=== PATIENT | female | born 2000 | race Caucasian/White ===

== ENCOUNTER 2021-05-15 17:43 | Emergency (ER) | payer OTHER ==
[2021-05-15 18:11] VITALS: BP 140/64; PULSE 93; TEMP 98.6; BMI 23.3
[2021-05-15 19:52] LABS: BASO % 1.4 % (0-2.0); EOS % 0.7 % (0-4.5); HEMATOCRIT 40.6 % (32.4-45.2); LYMPH % 29.2 % (8-40); MCH 30.4 pg (25.7-33.7); MCHC 34.4 g/dl (32.0-36.0); MEAN CELL VOLUME 88.5 fl (80-96); MEAN PLT VOLUME 7.7 fl (7.5-11.1); MONO % 7.4 % (3.8-10.2); NEUT % 61.3 % (42.8-82.8); PLATELET COUNT 269 10^3/uL (134-434); RBC 4.58 M/mm3 (3.60-5.2); RDW 12.7 % (11.6-15.6); WHITE BLOOD COUNT 11.8 K/mm3 (4.0-10.0)
[2021-05-15 19:53] LABS: URINE APPEARANCE CLEAR; URINE BILIRUBIN NEGATIVE (NEGATIVE); URINE COLOR YELLOW; URINE GLUCOSE (UA) NEGATIVE (NEGATIVE); URINE KETONE TRACE (NEGATIVE); URINE LEUK ESTERASE NEGATIVE (NEGATIVE); URINE NITRITE NEGATIVE (NEGATIVE); URINE PROTEIN NEGATIVE (NEGATIVE); URINE UROBILINOGEN 0.2 mg/dL (0.2-1.0)
[2021-05-15 19:57] LABS: HCG,QUALITATIVE URINE Negative
[2021-05-15] MEDS ORDERED: ACETAMINOPHEN 1000 MG/100 ML VIAL (NON FORMULARY) IVPB ONE (20:01)
[2021-05-15] MEDS ORDERED: ACETAMINOPHEN INJECTION 100 ML IVPB ONE (20:06)
[2021-05-15 20:12] LABS: ALBUMIN 3.9 g/dl (3.4-5.0); BLOOD UREA NITROGEN 17.9 mg/dL (7-18)
[2021-05-15 20:15] LABS: CREATININE 0.9 mg/dL (0.55-1.3)
[2021-05-15 20:17] LABS: BILIRUBIN,TOTAL 0.3 mg/dL (0.2-1); TOT PROT 7.8 g/dl (6.4-8.2)
== END 2021-05-15 23:06 | disposition home or self-care (01) ==
LOC: JER 17:43
PROC: 3E0333Z Introduction of Anti-inflammatory into Peripheral Vein, Percutaneous Approach (ICD-10-PCS; principal; 2021-05-15)
DX: R10.30 Lower abdominal pain, unspecified (principal)
CPT/HCPCS: 36415; 74177-TC; 80053; 81003; 84703; 85025; 87086; 93005; 93010; 99285-25; C9803; J0131; Q9967; U0003; U0005

== ENCOUNTER 2021-06-04 05:48 | Emergency (ER) | payer MEDICARE, OTHER ==
[2021-06-04] MEDS ORDERED: ACETAMINOPHEN 500 MG TABLET (FP) PO ONE (05:55)
[2021-06-04] MEDS ORDERED: ONDANSETRON 4 MG TABLET PO PRN (05:55)
[2021-06-04 06:00] VITALS: BP 120/72; PULSE 98; TEMP 99.8; BMI 23.4
[2021-06-04] MEDS ORDERED: ACETAMINOPHEN 325 MG TABLET (FP) ONE (06:00)
[2021-06-04] MEDS ORDERED: ONDANSETRON *ODT* 4 MG TABLET ONE (06:00)
[2021-06-04] MEDS ORDERED: KETOROLAC TROMETHAMINE 30 MG/1 ML VIAL IM ONE (06:41)
[2021-06-04] MEDS ORDERED: KETOROLAC TROMETHAMINE 30 MG/1 ML VIAL ONE (06:46)
[2021-06-04 07:00] LABS: HCG,QUALITATIVE URINE Negative
== END 2021-06-04 08:07 | disposition home or self-care (01) ==
LOC: FER 05:48
PROC: 3E0233Z Introduction of Anti-inflammatory into Muscle, Percutaneous Approach (ICD-10-PCS; principal; 2021-06-04)
DX: R05 Cough (principal); J02.9 Acute pharyngitis, unspecified; R50.9 Fever, unspecified; Z11.52 Encounter for screening for COVID-19
CPT/HCPCS: 71045-TC-FY; 81003; 81025; 84703; 87804; 87807; 93005; 96372; 99285-25; C9803; U0003; U0005

== ENCOUNTER 2021-07-24 14:17 | Inpatient (IN) | payer MEDICARE, OTHER ==
[2021-07-24 14:34] VITALS: BMI 33.3
[2021-07-24] MEDS ORDERED: SODIUM CHLORIDE 0.9% 500 ML INFUS.BAG IV ONE (15:59)
[2021-07-24 17:09] LABS: HEMATOCRIT 39.2 % (32.4-45.2); HEMOGLOBIN 13.4 GM/dL (10.7-15.3); MCH 30.4 pg (25.7-33.7); MCHC 34.3 g/dl (32.0-36.0); MEAN CELL VOLUME 88.7 fl (80-96); MEAN PLT VOLUME 7.7 fl (7.5-11.1); PLATELET COUNT 272 10^3/uL (134-434); RBC 4.41 M/mm3 (3.60-5.2); RDW 12.8 % (11.6-15.6)
[2021-07-24 17:31] LABS: ALBUMIN 3.8 g/dl (3.4-5.0); BLOOD UREA NITROGEN 14.3 mg/dL (7-18)
[2021-07-24 17:34] LABS: CREATININE 0.7 mg/dL (0.55-1.3)
[2021-07-24 17:35] LABS: BILIRUBIN,TOTAL 0.3 mg/dL (0.2-1); TOT PROT 7.7 g/dl (6.4-8.2)
[2021-07-24 17:38] LABS: ANISOCYTOSIS 0; MACROCYTOSIS 0; PLATELET ESTIMATE NORMAL
[2021-07-24 18:23] LABS: PH,URINE 5.5 (5.0-8.0); URINE APPEARANCE CLEAR; URINE BILIRUBIN NEGATIVE (NEGATIVE); URINE COLOR YELLOW; URINE GLUCOSE (UA) NEGATIVE (NEGATIVE); URINE KETONE NEGATIVE (NEGATIVE); URINE LEUK ESTERASE NEGATIVE (NEGATIVE); URINE NITRITE NEGATIVE (NEGATIVE); URINE PROTEIN NEGATIVE (NEGATIVE)
[2021-07-24 18:25] LABS: HCG,QUALITATIVE URINE Negative
[2021-07-24] MEDS ORDERED: CEFEPIME HCL/D5W 1 GM/50 ML BAG IVPB ONE (23:14)
[2021-07-24] MEDS ORDERED: morphine CARPU-JECT 4 MG/1 ML DISP.SYRIN IVPUSH ONE (23:18)
[2021-07-24] MEDS ORDERED: CEFEPIME 1 GM/100 ML BAG IVPB ONE (23:23)
[2021-07-24] MEDS ORDERED: morphine SULFATE 4 MG/ML VIAL ONE (23:24)
[2021-07-25] MEDS: LACTATED RINGERS SOLUTION 1,000 ML IV SCH (03:35)
[2021-07-25] MEDS ORDERED: morphine SULFATE 4 MG/ML VIAL IVPUSH ONE (06:30)
[2021-07-25] MEDS ORDERED: morphine CARPU-JECT 2 MG/1 ML DISP.SYRIN IVPUSH ONE (06:30)
[2021-07-25] MEDS ORDERED: morphine SULFATE 4 MG/ML VIAL ONE (06:37)
[2021-07-25 07:18] LABS: BASO % 0.5 % (0-2.0); EOS % 0.3 % (0-4.5); HEMATOCRIT 36.2 % (32.4-45.2); HEMOGLOBIN 12.4 GM/dL (10.7-15.3); LYMPH % 13.5 % (8-40); MCH 30.2 pg (25.7-33.7); MCHC 34.2 g/dl (32.0-36.0); MEAN CELL VOLUME 88.5 fl (80-96); MEAN PLT VOLUME 7.8 fl (7.5-11.1); MONO % 6.4 % (3.8-10.2); NEUT % 79.3 % (42.8-82.8); PLATELET COUNT 241 10^3/uL (134-434); RBC 4.09 M/mm3 (3.60-5.2); RDW 12.4 % (11.6-15.6); WHITE BLOOD COUNT 15.1 K/mm3 (4.0-10.0)
[2021-07-25 07:37] LABS: CALCIUM 8.8 mg/dL (8.5-10.1)
[2021-07-25 07:38] LABS: ALBUMIN 3.3 g/dl (3.4-5.0); BLOOD UREA NITROGEN 11.9 mg/dL (7-18)
[2021-07-25 07:42] LABS: BILIRUBIN,TOTAL 0.5 mg/dL (0.2-1); CREATININE 0.6 mg/dL (0.55-1.3); MAGNESIUM 2.1 mg/dL (1.8-2.4); PHOSPHOROUS 4.1 mg/dL (2.5-4.9)
[2021-07-25 07:43] LABS: TOT PROT 6.8 g/dl (6.4-8.2)
[2021-07-25] MEDS: PANTOPRAZOLE 40 MG TABLET PO SCH (09:22)
[2021-07-25] MEDS ORDERED: DEXTROSE 5%-WATER - 50 ML IVPB ONE ×2 (12:44→16:38)
[2021-07-25] MEDS ORDERED: PIPERACILLIN/TAZOBACTAM 3.375 GM VIAL IVPB ONE ×2 (12:44→16:38)
[2021-07-25] MEDS: PIPERACILLIN/TAZOB 3.375 GM 3.375 GM in DEXTROSE 5%-WATER - 50 ML IVPB SCH ×2 (12:54→17:04)
[2021-07-25] MEDS ORDERED: morphine SULFATE 4 MG/ML VIAL IVPUSH PRN (15:30)
[2021-07-25] MEDS ORDERED: ACETAMINOPHEN 1000 MG/100 ML VIAL IVPB PRN (18:24)
[2021-07-25] MEDS ORDERED: ONDANSETRON 4 MG/2 ML VIAL IVPUSH ONE (20:12)
[2021-07-25] MEDS: KETOROLAC TROMETHAMINE 30 MG/1 ML VIAL IVPUSH PRN (20:55)
[2021-07-25] MEDS: QUEtiapine FUMARATE 100 MG TABLET (FP) PO SCH (21:00)
[2021-07-25] MEDS: MELATONIN 5 MG TABLETS PO SCH (21:01)
[2021-07-25] MEDS ORDERED: PATIENT'S OWN MEDICATION (NON-FORMULARY) (Melatonin [Melatonin] 10 MG Capsule) PO SCH (22:00)
[2021-07-25] MEDS ORDERED: DIVALPROEX SODIUM 125 MG TABLET E.C. PO SCH (22:00)
[2021-07-26] MEDS ORDERED: PIPERACILLIN/TAZOBACTAM 3.375 GM VIAL IVPB ONE ×3 (01:15→17:50)
[2021-07-26] MEDS ORDERED: DEXTROSE 5%-WATER - 50 ML IVPB ONE ×3 (01:15→17:50)
[2021-07-26] MEDS: PIPERACILLIN/TAZOB 3.375 GM 3.375 GM in DEXTROSE 5%-WATER - 50 ML IVPB SCH ×3 (02:14→18:39)
[2021-07-26] MEDS: LACTATED RINGERS SOLUTION 1,000 ML IV SCH ×2 (02:56→16:16)
[2021-07-26] MEDS: KETOROLAC TROMETHAMINE 30 MG/1 ML VIAL IVPUSH PRN ×2 (07:16→23:39)
[2021-07-26 08:48] LABS: BASO % 0.6 % (0-2.0); HEMATOCRIT 36.4 % (32.4-45.2); HEMOGLOBIN 12.7 GM/dL (10.7-15.3); MCH 30.2 pg (25.7-33.7); MEAN CELL VOLUME 86.2 fl (80-96); MEAN PLT VOLUME 7.6 fl (7.5-11.1); MONO % 7.1 % (3.8-10.2); NEUT % 75.3 % (42.8-82.8); PLATELET COUNT 215 10^3/uL (134-434); RBC 4.22 M/mm3 (3.60-5.2); RDW 12.2 % (11.6-15.6); WHITE BLOOD COUNT 11.6 K/mm3 (4.0-10.0)
[2021-07-26 09:00] LABS: ALBUMIN 3.1 g/dl (3.4-5.0)
[2021-07-26 09:01] LABS: BLOOD UREA NITROGEN 12.1 mg/dL (7-18); CALCIUM 8.9 mg/dL (8.5-10.1)
[2021-07-26 09:03] LABS: CREATININE 0.7 mg/dL (0.55-1.3); PHOSPHOROUS 4.9 mg/dL (2.5-4.9)
[2021-07-26 09:05] LABS: BILIRUBIN,TOTAL 0.9 mg/dL (0.2-1); TOT PROT 6.6 g/dl (6.4-8.2)
[2021-07-26 09:10] LABS: MAGNESIUM 2.2 mg/dL (1.8-2.4)
[2021-07-26] MEDS ORDERED: QUEtiapine FUMARATE 100 MG TABLET (FP) PO SCH (10:00)
[2021-07-26] MEDS: QUEtiapine FUMARATE 100 MG TABLET (FP) PO SCH ×2 (10:03→21:01)
[2021-07-26] MEDS: PANTOPRAZOLE 40 MG TABLET PO SCH (10:03)
[2021-07-26] MEDS: DIVALPROEX SODIUM 125 MG TABLET E.C. PO SCH (10:03)
[2021-07-26] MEDS ORDERED: INSULIN (NOVOLOG) ASPART 100 UNITS/ML 10ML VIAL ONE (11:08)
[2021-07-26] MEDS ORDERED: LIDOCAINE HCL 1%, 10 MG/ML (20ML VIAL) ONE (13:04)
[2021-07-26] MEDS ORDERED: MIDAZOLAM HCL 2 MG/2 ML SINGLE DOSE VIAL ONE (13:43)
[2021-07-26] MEDS ORDERED: GLYCOPYRROLATE 0.2 MG/1 ML VIAL ONE (14:00)
[2021-07-26] MEDS ORDERED: CLINDAMYCIN PHOSPHATE 600 MG/4 ML VIAL ONE (14:16)
[2021-07-26] MEDS ORDERED: PROMETHAZINE HCL 25 MG/1 ML VIAL IVPUSH PRN (14:33)
[2021-07-26] MEDS ORDERED: ACETAMINOPHEN 1000 MG/100 ML VIAL IVPB ONE (14:37)
[2021-07-26] MEDS ORDERED: ACETAMINOPHEN INJECTION 100 ML IVPB ONE (15:09)
[2021-07-26] MEDS: MELATONIN 5 MG TABLETS PO SCH (21:01)
[2021-07-27] MEDS ORDERED: ONDANSETRON 4 MG/2 ML VIAL IVPUSH ONE (00:30)
[2021-07-27] MEDS ORDERED: PIPERACILLIN/TAZOBACTAM 3.375 GM VIAL IVPB ONE ×3 (02:11→17:30)
[2021-07-27] MEDS ORDERED: DEXTROSE 5%-WATER - 50 ML IVPB ONE ×3 (02:11→17:30)
[2021-07-27] MEDS: PIPERACILLIN/TAZOB 3.375 GM 3.375 GM in DEXTROSE 5%-WATER - 50 ML IVPB SCH ×3 (02:40→17:46)
[2021-07-27] MEDS: LACTATED RINGERS SOLUTION 1,000 ML IV SCH ×2 (08:01→15:51)
[2021-07-27] MEDS: morphine SULFATE 4 MG/ML VIAL IVPUSH ONE ×2 (09:02→09:15)
[2021-07-27 09:31] LABS: BASO % 0.3 % (0-2.0); EOS % 0.1 % (0-4.5); HEMATOCRIT 36.4 % (32.4-45.2); HEMOGLOBIN 12.3 GM/dL (10.7-15.3); LYMPH % 12.3 % (8-40); MCHC 33.9 g/dl (32.0-36.0); MEAN CELL VOLUME 88.5 fl (80-96); MEAN PLT VOLUME 8.1 fl (7.5-11.1); MONO % 3.9 % (3.8-10.2); NEUT % 83.4 % (42.8-82.8); PLATELET COUNT 268 10^3/uL (134-434); RBC 4.11 M/mm3 (3.60-5.2); RDW 12.6 % (11.6-15.6)
[2021-07-27 09:56] LABS: CALCIUM 9.4 mg/dL (8.5-10.1)
[2021-07-27 09:57] LABS: BLOOD UREA NITROGEN 16.3 mg/dL (7-18)
[2021-07-27 10:00] LABS: CREATININE 0.8 mg/dL (0.55-1.3)
[2021-07-27] MEDS ORDERED: PT OWN MED DRAWER 7, Y5N ONE (10:37)
[2021-07-27] MEDS: DIVALPROEX SODIUM 125 MG TABLET E.C. PO SCH (10:45)
[2021-07-27] MEDS: QUEtiapine FUMARATE 100 MG TABLET (FP) PO SCH ×2 (10:46→21:14)
[2021-07-27] MEDS: PANTOPRAZOLE 40 MG TABLET PO SCH (10:46)
[2021-07-27] MEDS ORDERED: LACTULOSE 20 GM/30 ML UDC (FOR ORAL USE ONLY) PO ONE (15:27)
[2021-07-27] MEDS ORDERED: ACETAMINOPHEN 1000 MG/100 ML VIAL IVPB ONE (19:43)
[2021-07-27] MEDS: POLYETHYLENE GLYCOL (HEALTHYLAX) 3350 17 GM PACKET PO SCH (19:58)
[2021-07-27] MEDS: MELATONIN 5 MG TABLETS PO SCH (21:14)
[2021-07-27] MEDS ORDERED: FAMOTIDINE 20 MG TABLET PO ONE (21:40)
[2021-07-27] MEDS ORDERED: SENNOSIDES/DOCUSATE COMBO (SENNA PLUS) TABLET (UD) PO SCH (22:00)
[2021-07-28] MEDS ORDERED: PIPERACILLIN/TAZOBACTAM 3.375 GM VIAL IVPB ONE ×3 (01:31→18:21)
[2021-07-28] MEDS ORDERED: DEXTROSE 5%-WATER - 50 ML IVPB ONE ×3 (01:31→18:21)
[2021-07-28] MEDS: PIPERACILLIN/TAZOB 3.375 GM 3.375 GM in DEXTROSE 5%-WATER - 50 ML IVPB SCH ×3 (01:44→18:53)
[2021-07-28 09:06] LABS: BASO % 0.7 % (0-2.0); HEMATOCRIT 36.5 % (32.4-45.2); HEMOGLOBIN 12.4 GM/dL (10.7-15.3); LYMPH % 43.7 % (8-40); MCH 30.4 pg (25.7-33.7); MEAN CELL VOLUME 89.6 fl (80-96); MEAN PLT VOLUME 7.9 fl (7.5-11.1); MONO % 6.4 % (3.8-10.2); NEUT % 48.2 % (42.8-82.8); PLATELET COUNT 265 10^3/uL (134-434); RBC 4.08 M/mm3 (3.60-5.2); RDW 12.8 % (11.6-15.6); WHITE BLOOD COUNT 9.5 K/mm3 (4.0-10.0)
[2021-07-28 09:31] LABS: ALBUMIN 3.2 g/dl (3.4-5.0); BLOOD UREA NITROGEN 15.4 mg/dL (7-18); CALCIUM 9.3 mg/dL (8.5-10.1)
[2021-07-28 09:32] LABS: MAGNESIUM 2.2 mg/dL (1.8-2.4)
[2021-07-28 09:34] LABS: CREATININE 0.8 mg/dL (0.55-1.3); PHOSPHOROUS 4.2 mg/dL (2.5-4.9)
[2021-07-28 09:36] LABS: BILIRUBIN,TOTAL 0.3 mg/dL (0.2-1)
[2021-07-28] MEDS ORDERED: PT OWN MED DRAWER 7, Y5N ONE (10:51)
[2021-07-28] MEDS: PANTOPRAZOLE 40 MG TABLET PO SCH (10:56)
[2021-07-28] MEDS: ENOXAPARIN NA (PORCINE) 40 MG/0.4 ML DISP.SYRIN SQ SCH (10:56)
[2021-07-28] MEDS: POLYETHYLENE GLYCOL (HEALTHYLAX) 3350 17 GM PACKET PO SCH ×2 (10:56→21:11)
[2021-07-28] MEDS: DIVALPROEX SODIUM 125 MG TABLET E.C. PO SCH (10:56)
[2021-07-28] MEDS: QUEtiapine FUMARATE 100 MG TABLET (FP) PO SCH ×2 (10:56→21:10)
[2021-07-28 11:53] LABS: HIV INTERPRETATION NEGATIVE (NEGATIVE)
[2021-07-28] MEDS ORDERED: LACTULOSE 20 GM/30 ML UDC (FOR ORAL USE ONLY) PO ONE (17:02)
[2021-07-28] MEDS ORDERED: ACETAMINOPHEN 325 MG TABLET (FP) PO ONE (19:32)
[2021-07-28] MEDS ORDERED: ACETAMINOPHEN 1000 MG/100 ML VIAL IVPB ONE (19:33)
[2021-07-28] MEDS: MELATONIN 5 MG TABLETS PO SCH (21:10)
[2021-07-28] MEDS: SENNOSIDES/DOCUSATE COMBO (SENNA PLUS) TABLET (UD) PO SCH (21:10)
[2021-07-29] MEDS ORDERED: PIPERACILLIN/TAZOBACTAM 3.375 GM VIAL IVPB ONE ×2 (01:48→08:43)
[2021-07-29] MEDS ORDERED: DEXTROSE 5%-WATER - 50 ML IVPB ONE ×2 (01:49→08:44)
[2021-07-29] MEDS: PIPERACILLIN/TAZOB 3.375 GM 3.375 GM in DEXTROSE 5%-WATER - 50 ML IVPB SCH ×2 (01:58→09:55)
[2021-07-29] MEDS: metroNIDAZOLE 250 MG TABLET PO SCH ×3 (06:40→22:25)
[2021-07-29] MEDS: POLYETHYLENE GLYCOL (HEALTHYLAX) 3350 17 GM PACKET PO SCH ×2 (06:41→13:49)
[2021-07-29] MEDS ORDERED: PT OWN MED DRAWER 7, Y5N ONE ×2 (08:43→21:24)
[2021-07-29 09:14] LABS: BASO % 0.9 % (0-2.0); EOS % 1.7 % (0-4.5); HEMATOCRIT 35.9 % (32.4-45.2); HEMOGLOBIN 12.4 GM/dL (10.7-15.3); LYMPH % 38.4 % (8-40); MCH 30.5 pg (25.7-33.7); MCHC 34.5 g/dl (32.0-36.0); MEAN CELL VOLUME 88.4 fl (80-96); MEAN PLT VOLUME 7.7 fl (7.5-11.1); MONO % 7.5 % (3.8-10.2); NEUT % 51.5 % (42.8-82.8); PLATELET COUNT 275 10^3/uL (134-434); RBC 4.06 M/mm3 (3.60-5.2); RDW 12.5 % (11.6-15.6); WHITE BLOOD COUNT 7.9 K/mm3 (4.0-10.0)
[2021-07-29 09:45] LABS: ALBUMIN 3.2 g/dl (3.4-5.0); BLOOD UREA NITROGEN 16.1 mg/dL (7-18); CALCIUM 8.9 mg/dL (8.5-10.1)
[2021-07-29 09:48] LABS: CREATININE 0.7 mg/dL (0.55-1.3)
[2021-07-29 09:50] LABS: BILIRUBIN,TOTAL 0.2 mg/dL (0.2-1); TOT PROT 6.8 g/dl (6.4-8.2)
[2021-07-29] MEDS: QUEtiapine FUMARATE 100 MG TABLET (FP) PO SCH ×2 (09:55→22:25)
[2021-07-29] MEDS: SENNOSIDES/DOCUSATE COMBO (SENNA PLUS) TABLET (UD) PO SCH ×2 (09:55→22:25)
[2021-07-29] MEDS: PANTOPRAZOLE 40 MG TABLET PO SCH (09:55)
[2021-07-29] MEDS: DIVALPROEX SODIUM 125 MG TABLET E.C. PO SCH (09:55)
[2021-07-29] MEDS: ENOXAPARIN NA (PORCINE) 40 MG/0.4 ML DISP.SYRIN SQ SCH (09:58)
[2021-07-29] MEDS ORDERED: CEFUROXIME AXETIL 500 MG TABLET PO SCH (10:00)
[2021-07-29] MEDS ORDERED: LACTULOSE 20 GM/30 ML UDC (FOR ORAL USE ONLY) PO ONE (12:52)
[2021-07-29] MEDS ORDERED: MINERAL OIL ENEMA 133 ML ENEMA RC ONE (13:15)
[2021-07-29] MEDS ORDERED: MAGNESIUM CITRATE 300 ML BOTTLE PO ONE (15:15)
[2021-07-29] MEDS ORDERED: BISACODYL 5 MG TABLET.DR (FP) PO ONE ×2 (15:16→18:00)
[2021-07-29] MEDS ORDERED: PEG 3350/NA SULF BICARB CL/KCL 4000 ML SOLN.RECON PO ONE (19:15)
[2021-07-29] MEDS: LIDOCAINE HCL 5% TOP OINTMENT 50 GM TUBE TP SCH (20:20)
[2021-07-29] MEDS: MELATONIN 5 MG TABLETS PO SCH (22:25)
[2021-07-29] MEDS: CEFUROXIME AXETIL 500 MG TABLET PO SCH (22:25)
[2021-07-29] MEDS: PSYLLIUM 5.85 GM PACKET PO SCH (22:26)
[2021-07-30] MEDS: LIDOCAINE HCL 5% TOP OINTMENT 50 GM TUBE TP SCH ×4 (02:06→18:18)
[2021-07-30] MEDS: metroNIDAZOLE 250 MG TABLET PO SCH ×3 (05:14→22:25)
[2021-07-30] MEDS: SENNOSIDES/DOCUSATE COMBO (SENNA PLUS) TABLET (UD) PO SCH ×2 (10:48→22:25)
[2021-07-30] MEDS: QUEtiapine FUMARATE 100 MG TABLET (FP) PO SCH ×2 (10:49→22:26)
[2021-07-30] MEDS: ENOXAPARIN NA (PORCINE) 40 MG/0.4 ML DISP.SYRIN SQ SCH (10:49)
[2021-07-30] MEDS: CEFUROXIME AXETIL 500 MG TABLET PO SCH ×2 (10:49→22:25)
[2021-07-30] MEDS: PANTOPRAZOLE 40 MG TABLET PO SCH (10:49)
[2021-07-30] MEDS: DIVALPROEX SODIUM 125 MG TABLET E.C. PO SCH (10:50)
[2021-07-30] MEDS: PSYLLIUM 5.85 GM PACKET PO SCH ×2 (10:50→22:29)
[2021-07-30] MEDS: POLYETHYLENE GLYCOL (HEALTHYLAX) 3350 17 GM PACKET PO SCH ×2 (13:24→22:26)
[2021-07-30] MEDS ORDERED: PT OWN MED DRAWER 7, Y5N ONE (20:34)
[2021-07-30] MEDS: MELATONIN 5 MG TABLETS PO SCH (22:25)
[2021-07-31] MEDS: LIDOCAINE HCL 5% TOP OINTMENT 50 GM TUBE TP SCH ×4 (00:13→18:28)
[2021-07-31] MEDS ORDERED: PT OWN MED DRAWER 7, Y5N ONE (00:30)
[2021-07-31] MEDS: metroNIDAZOLE 250 MG TABLET PO SCH ×3 (05:18→21:04)
[2021-07-31] MEDS: POLYETHYLENE GLYCOL (HEALTHYLAX) 3350 17 GM PACKET PO SCH ×3 (05:18→21:05)
[2021-07-31] MEDS: CEFUROXIME AXETIL 500 MG TABLET PO SCH ×2 (09:58→21:05)
[2021-07-31] MEDS: SENNOSIDES/DOCUSATE COMBO (SENNA PLUS) TABLET (UD) PO SCH ×2 (09:58→21:04)
[2021-07-31 09:59] LABS: BASO % 0.6 % (0-2.0); EOS % 0.9 % (0-4.5); HEMATOCRIT 40.3 % (32.4-45.2); HEMOGLOBIN 13.7 GM/dL (10.7-15.3); LYMPH % 23.9 % (8-40); MCH 30.2 pg (25.7-33.7); MEAN CELL VOLUME 88.8 fl (80-96); MEAN PLT VOLUME 7.6 fl (7.5-11.1); MONO % 6.7 % (3.8-10.2); NEUT % 67.9 % (42.8-82.8); PLATELET COUNT 294 10^3/uL (134-434); RBC 4.53 M/mm3 (3.60-5.2); RDW 12.6 % (11.6-15.6); WHITE BLOOD COUNT 9.5 K/mm3 (4.0-10.0)
[2021-07-31] MEDS: QUEtiapine FUMARATE 100 MG TABLET (FP) PO SCH ×2 (09:59→21:04)
[2021-07-31] MEDS: PANTOPRAZOLE 40 MG TABLET PO SCH (09:59)
[2021-07-31] MEDS: PSYLLIUM 5.85 GM PACKET PO SCH ×2 (10:00→21:05)
[2021-07-31] MEDS: DIVALPROEX SODIUM 125 MG TABLET E.C. PO SCH (10:00)
[2021-07-31] MEDS: ENOXAPARIN NA (PORCINE) 40 MG/0.4 ML DISP.SYRIN SQ SCH (10:00)
[2021-07-31 10:18] LABS: ALBUMIN 3.6 g/dl (3.4-5.0)
[2021-07-31 10:19] LABS: BLOOD UREA NITROGEN 14.7 mg/dL (7-18); CALCIUM 9.4 mg/dL (8.5-10.1); MAGNESIUM 2.4 mg/dL (1.8-2.4)
[2021-07-31 10:21] LABS: CREATININE 0.8 mg/dL (0.55-1.3)
[2021-07-31 10:22] LABS: PHOSPHOROUS 3.8 mg/dL (2.5-4.9)
[2021-07-31 10:23] LABS: BILIRUBIN,TOTAL 0.7 mg/dL (0.2-1); TOT PROT 7.4 g/dl (6.4-8.2)
[2021-07-31] MEDS: MAGNESIUM HYDROX 2400MG/30ML ORAL SUSPENSION 30 ML CUP PO ONE ×2 (15:00→16:12)
[2021-07-31] MEDS: BISACODYL 5 MG TABLET.DR (FP) PO SCH (17:26)
[2021-07-31] MEDS: MELATONIN 5 MG TABLETS PO SCH (21:04)
[2021-08-01] MEDS: LIDOCAINE HCL 5% TOP OINTMENT 50 GM TUBE TP SCH ×4 (01:50→18:20)
[2021-08-01] MEDS: metroNIDAZOLE 250 MG TABLET PO SCH ×3 (06:34→21:07)
[2021-08-01] MEDS: POLYETHYLENE GLYCOL (HEALTHYLAX) 3350 17 GM PACKET PO SCH ×3 (06:34→21:07)
[2021-08-01 08:58] LABS: BASO % 0.7 % (0-2.0); EOS % 1.4 % (0-4.5); HEMATOCRIT 38.3 % (32.4-45.2); HEMOGLOBIN 13.5 GM/dL (10.7-15.3); LYMPH % 29.8 % (8-40); MCH 30.8 pg (25.7-33.7); MCHC 35.1 g/dl (32.0-36.0); MEAN CELL VOLUME 87.6 fl (80-96); MEAN PLT VOLUME 7.5 fl (7.5-11.1); MONO % 8.2 % (3.8-10.2); NEUT % 59.9 % (42.8-82.8); PLATELET COUNT 258 10^3/uL (134-434); RBC 4.37 M/mm3 (3.60-5.2); RDW 12.6 % (11.6-15.6); WHITE BLOOD COUNT 9.3 K/mm3 (4.0-10.0)
[2021-08-01 09:20] LABS: BLOOD UREA NITROGEN 14.6 mg/dL (7-18); CALCIUM 9.4 mg/dL (8.5-10.1)
[2021-08-01 09:24] LABS: CREATININE 0.7 mg/dL (0.55-1.3)
[2021-08-01] MEDS: CEFUROXIME AXETIL 500 MG TABLET PO SCH ×2 (10:02→21:07)
[2021-08-01] MEDS: ENOXAPARIN NA (PORCINE) 40 MG/0.4 ML DISP.SYRIN SQ SCH (10:03)
[2021-08-01] MEDS: DIVALPROEX SODIUM 125 MG TABLET E.C. PO SCH (10:03)
[2021-08-01] MEDS: SENNOSIDES/DOCUSATE COMBO (SENNA PLUS) TABLET (UD) PO SCH ×2 (10:04→21:06)
[2021-08-01] MEDS: PSYLLIUM 5.85 GM PACKET PO SCH ×2 (10:04→21:07)
[2021-08-01] MEDS: BISACODYL 5 MG TABLET.DR (FP) PO SCH (10:05)
[2021-08-01] MEDS: QUEtiapine FUMARATE 100 MG TABLET (FP) PO SCH ×2 (10:05→21:07)
[2021-08-01] MEDS: PANTOPRAZOLE 40 MG TABLET PO SCH (10:05)
[2021-08-01] MEDS ORDERED: ONDANSETRON 4 MG/2 ML VIAL IVPUSH ONE (14:42)
[2021-08-01] MEDS ORDERED: PT OWN MED DRAWER 7, Y5N ONE (20:46)
[2021-08-01] MEDS: MELATONIN 5 MG TABLETS PO SCH (21:06)
[2021-08-02] MEDS: LIDOCAINE HCL 5% TOP OINTMENT 50 GM TUBE TP SCH ×4 (00:07→18:06)
[2021-08-02] MEDS: metroNIDAZOLE 250 MG TABLET PO SCH ×3 (05:14→21:16)
[2021-08-02] MEDS: POLYETHYLENE GLYCOL (HEALTHYLAX) 3350 17 GM PACKET PO SCH ×4 (05:14→21:17)
[2021-08-02 09:48] LABS: BASO % 0.6 % (0-2.0); HEMATOCRIT 41.2 % (32.4-45.2); HEMOGLOBIN 13.9 GM/dL (10.7-15.3); LYMPH % 30.3 % (8-40); MCH 30.1 pg (25.7-33.7); MCHC 33.8 g/dl (32.0-36.0); MEAN CELL VOLUME 88.9 fl (80-96); MEAN PLT VOLUME 8.1 fl (7.5-11.1); MONO % 5.4 % (3.8-10.2); NEUT % 62.7 % (42.8-82.8); PLATELET COUNT 284 10^3/uL (134-434); RBC 4.63 M/mm3 (3.60-5.2); RDW 12.6 % (11.6-15.6)
[2021-08-02 10:14] LABS: BLOOD UREA NITROGEN 20.6 mg/dL (7-18); CALCIUM 9.5 mg/dL (8.5-10.1); MAGNESIUM 2.4 mg/dL (1.8-2.4)
[2021-08-02 10:15] LABS: ALBUMIN 3.5 g/dl (3.4-5.0)
[2021-08-02 10:17] LABS: CREATININE 0.7 mg/dL (0.55-1.3); PHOSPHOROUS 3.7 mg/dL (2.5-4.9)
[2021-08-02 10:19] LABS: BILIRUBIN,TOTAL 0.4 mg/dL (0.2-1); TOT PROT 7.4 g/dl (6.4-8.2)
[2021-08-02] MEDS ORDERED: PT OWN MED DRAWER 7, Y5N ONE (10:22)
[2021-08-02] MEDS: CEFUROXIME AXETIL 500 MG TABLET PO SCH ×2 (10:23→21:17)
[2021-08-02] MEDS: DIVALPROEX SODIUM 125 MG TABLET E.C. PO SCH (10:24)
[2021-08-02] MEDS: PSYLLIUM 5.85 GM PACKET PO SCH ×3 (10:24→21:17)
[2021-08-02] MEDS: ENOXAPARIN NA (PORCINE) 40 MG/0.4 ML DISP.SYRIN SQ SCH (10:24)
[2021-08-02] MEDS: BISACODYL 5 MG TABLET.DR (FP) PO SCH (10:24)
[2021-08-02] MEDS: PANTOPRAZOLE 40 MG TABLET PO SCH (10:24)
[2021-08-02] MEDS: QUEtiapine FUMARATE 100 MG TABLET (FP) PO SCH ×2 (10:24→21:16)
[2021-08-02] MEDS: SENNOSIDES/DOCUSATE COMBO (SENNA PLUS) TABLET (UD) PO SCH ×2 (10:24→21:16)
[2021-08-02] MEDS: MELATONIN 5 MG TABLETS PO SCH (21:16)
[2021-08-03] MEDS: LIDOCAINE HCL 5% TOP OINTMENT 50 GM TUBE TP SCH ×3 (02:15→13:16)
[2021-08-03] MEDS: metroNIDAZOLE 250 MG TABLET PO SCH ×3 (06:18→21:17)
[2021-08-03] MEDS: POLYETHYLENE GLYCOL (HEALTHYLAX) 3350 17 GM PACKET PO SCH ×3 (06:18→21:18)
[2021-08-03] MEDS ORDERED: PT OWN MED DRAWER 7, Y5N ONE ×2 (09:28→21:15)
[2021-08-03] MEDS: ENOXAPARIN NA (PORCINE) 40 MG/0.4 ML DISP.SYRIN SQ SCH (09:29)
[2021-08-03] MEDS: QUEtiapine FUMARATE 100 MG TABLET (FP) PO SCH ×2 (09:29→21:17)
[2021-08-03] MEDS: PANTOPRAZOLE 40 MG TABLET PO SCH (09:29)
[2021-08-03] MEDS: BISACODYL 5 MG TABLET.DR (FP) PO SCH (09:29)
[2021-08-03] MEDS: SENNOSIDES/DOCUSATE COMBO (SENNA PLUS) TABLET (UD) PO SCH ×2 (09:29→21:17)
[2021-08-03] MEDS: CEFUROXIME AXETIL 500 MG TABLET PO SCH ×2 (09:30→21:18)
[2021-08-03] MEDS: PSYLLIUM 5.85 GM PACKET PO SCH ×2 (09:30→21:18)
[2021-08-03] MEDS: DIVALPROEX SODIUM 125 MG TABLET E.C. PO SCH (09:30)
[2021-08-03] MEDS ORDERED: MINERAL OIL ENEMA 133 ML ENEMA PR ONE (14:59)
[2021-08-03] MEDS: LACTOBACILLUS ACIDOPHILUS 1 TABLET PO SCH (15:29)
[2021-08-03 17:22] LABS: ALBUMIN 3.8 g/dl (3.4-5.0)
[2021-08-03 17:24] LABS: BILIRUBIN,DIRECT 0.1 mg/dL (0.0-0.2)
[2021-08-03 17:26] LABS: BILIRUBIN,TOTAL 0.2 mg/dL (0.2-1); TOT PROT 7.8 g/dl (6.4-8.2)
[2021-08-03] MEDS: MELATONIN 5 MG TABLETS PO SCH (21:17)
[2021-08-03 23:53] LABS: EPI CELLS >36 /uL (0-25.1); HYALINE CASTS 4 /uL (0-3.1); PH,URINE 5.5 (5.0-8.0); URINE APPEARANCE CLEAR; URINE BILIRUBIN 1+ (NEGATIVE); URINE COLOR DK YELLOW; URINE GLUCOSE (UA) NEGATIVE (NEGATIVE); URINE KETONE TRACE (NEGATIVE); URINE LEUK ESTERASE 1+ (NEGATIVE); URINE NITRITE POSITIVE (NEGATIVE); URINE PROTEIN TRACE (NEGATIVE); URINE RBC 18 /uL (0-23.9); URINE UROBILINOGEN 0.2 mg/dL (0.2-1.0); URINE WBC 14 /uL (0-25.8)
[2021-08-04] MEDS: POLYETHYLENE GLYCOL (HEALTHYLAX) 3350 17 GM PACKET PO SCH ×3 (05:34→22:24)
[2021-08-04] MEDS: metroNIDAZOLE 250 MG TABLET PO SCH ×3 (05:34→22:22)
[2021-08-04 09:26] LABS: ALBUMIN 3.3 g/dl (3.4-5.0); BILIRUBIN,TOTAL 0.4 mg/dL (0.2-1); BLOOD UREA NITROGEN 19.2 mg/dL (7-18); TOT PROT 6.8 g/dl (6.4-8.2)
[2021-08-04 09:28] LABS: CALCIUM 9.1 mg/dL (8.5-10.1)
[2021-08-04 09:29] LABS: CREATININE 0.7 mg/dL (0.55-1.3); PHOSPHOROUS 3.8 mg/dL (2.5-4.9)
[2021-08-04] MEDS: LACTOBACILLUS ACIDOPHILUS 1 TABLET PO SCH (10:05)
[2021-08-04] MEDS: ENOXAPARIN NA (PORCINE) 40 MG/0.4 ML DISP.SYRIN SQ SCH (10:05)
[2021-08-04] MEDS: CEFUROXIME AXETIL 500 MG TABLET PO SCH ×2 (10:05→22:24)
[2021-08-04] MEDS: QUEtiapine FUMARATE 100 MG TABLET (FP) PO SCH ×2 (10:05→22:23)
[2021-08-04] MEDS: SENNOSIDES/DOCUSATE COMBO (SENNA PLUS) TABLET (UD) PO SCH ×2 (10:06→22:23)
[2021-08-04] MEDS: PANTOPRAZOLE 40 MG TABLET PO SCH (10:06)
[2021-08-04] MEDS: BISACODYL 5 MG TABLET.DR (FP) PO SCH (10:06)
[2021-08-04] MEDS: PSYLLIUM 5.85 GM PACKET PO SCH ×3 (10:06→22:23)
[2021-08-04] MEDS: DIVALPROEX SODIUM 125 MG TABLET E.C. PO SCH (10:06)
[2021-08-04] MEDS: MELATONIN 5 MG TABLETS PO SCH (22:22)
[2021-08-05] MEDS: POLYETHYLENE GLYCOL (HEALTHYLAX) 3350 17 GM PACKET PO SCH (06:01)
[2021-08-05] MEDS: metroNIDAZOLE 250 MG TABLET PO SCH (06:01)
[2021-08-05] MEDS: SENNOSIDES/DOCUSATE COMBO (SENNA PLUS) TABLET (UD) PO SCH (09:43)
[2021-08-05] MEDS: BISACODYL 5 MG TABLET.DR (FP) PO SCH (09:43)
[2021-08-05] MEDS: PANTOPRAZOLE 40 MG TABLET PO SCH (09:43)
[2021-08-05] MEDS: QUEtiapine FUMARATE 100 MG TABLET (FP) PO SCH (09:44)
[2021-08-05] MEDS: CEFUROXIME AXETIL 500 MG TABLET PO SCH (09:44)
[2021-08-05] MEDS: LACTOBACILLUS ACIDOPHILUS 1 TABLET PO SCH (09:44)
[2021-08-05] MEDS: DIVALPROEX SODIUM 125 MG TABLET E.C. PO SCH (09:45)
[2021-08-05] MEDS: PSYLLIUM 5.85 GM PACKET PO SCH (09:46)
[2021-08-05] MEDS: ENOXAPARIN NA (PORCINE) 40 MG/0.4 ML DISP.SYRIN SQ SCH (09:46)
[2021-08-05 10:44] VITALS: BP 130/78; PULSE 74; TEMP 98
== END 2021-08-05 13:00 | disposition home or self-care (01) | DRG 872 ==
LOC: JER 14:17 → JERBED 23:32 → J8W 07-25 08:25
PROVIDERS: ADMIT Internal Medicine; ATTEND Internal Medicine
PROC: 0D9 Gastrointestinal System, Drainage (ICD-10-PCS; principal; 2021-07-26 17:00)
DX: A41.9 Sepsis, unspecified organism (principal); K61.1 Rectal abscess; K25.7 Chronic gastric ulcer without hemorrhage or perforation; F31.9 Bipolar disorder, unspecified; R56.9 Unspecified convulsions; K75.81 Nonalcoholic steatohepatitis (NASH); K58.9 Irritable bowel syndrome, unspecified; G47.00 Insomnia, unspecified; F20.9 Schizophrenia, unspecified; D72.829 Elevated white blood cell count, unspecified; K59.00 Constipation, unspecified; E66.9 Obesity, unspecified; Z68.33 Body mass index [BMI] 33.0-33.9, adult
CPT/HCPCS: 36415; 74018-TC-FY; 74019-TC-FY; 74177-TC; 76705-TC; 80048; 80053; 80076; 81003; 83036; 83735; 84100; 84443; 84484; 84703; 85025; 87040; 87070; 87077; 87086; 87186; 87205; 87389; 87491; 87591; 87661; 93005; 93010; 93971; 94760; 97116-GP; 97161-GP; 99285-25; C9803; J0131; Q9967; U0003; U0005

== ENCOUNTER 2021-10-29 19:07 | Emergency (ER) | payer MEDICARE ==
[2021-10-29 19:14] VITALS: BP 121/88; PULSE 104; TEMP 98; BMI 39.9
[2021-10-29] MEDS ORDERED: ONDANSETRON 4 MG/2 ML VIAL IVPUSH ONE (19:56)
[2021-10-29] MEDS ORDERED: FAMOTIDINE 20 MG/50 ML IVPB 20 MG/50 ML MG IVPB ONE ×2 (19:56→20:27)
[2021-10-29] MEDS ORDERED: MAG HYDROX/AL HYDROX/SIMETH 30 ML UNIT-DOSE CUP PO ONE (19:56)
[2021-10-29] MEDS ORDERED: SODIUM CHLORIDE 0.9% 500 ML INFUS.BAG IV ONE (19:56)
[2021-10-29] MEDS ORDERED: MAG HYDROX/AL HYDROX/SIMETH 30 ML UNIT-DOSE CUP ONE (20:27)
[2021-10-29] MEDS ORDERED: ONDANSETRON 4 MG/2 ML VIAL ONE (20:27)
[2021-10-29 21:28] LABS: PH,URINE 7.5 (5.0-8.0); URINE APPEARANCE CLEAR; URINE BILIRUBIN NEGATIVE (NEGATIVE); URINE COLOR YELLOW; URINE GLUCOSE (UA) NEGATIVE (NEGATIVE); URINE KETONE NEGATIVE (NEGATIVE); URINE LEUK ESTERASE NEGATIVE (NEGATIVE); URINE NITRITE NEGATIVE (NEGATIVE); URINE PROTEIN NEGATIVE (NEGATIVE)
[2021-10-29 21:29] LABS: BASO % 0.5 % (0-2.0); EOS % 0.7 % (0-4.5); HEMATOCRIT 38.6 % (32.4-45.2); HEMOGLOBIN 13.1 GM/dL (10.7-15.3); LYMPH % 32.7 % (8-40); MCH 30.1 pg (25.7-33.7); MCHC 33.9 g/dl (32.0-36.0); MEAN CELL VOLUME 88.6 fl (80-96); MEAN PLT VOLUME 7.9 fl (7.5-11.1); MONO % 7.7 % (3.8-10.2); NEUT % 58.4 % (42.8-82.8); PLATELET COUNT 244 10^3/uL (134-434); RBC 4.35 M/mm3 (3.60-5.2); RDW 13.5 % (11.6-15.6); WHITE BLOOD COUNT 10.4 K/mm3 (4.0-10.0)
[2021-10-29 21:48] LABS: CALCIUM 9.7 mg/dL (8.5-10.1)
[2021-10-29 21:49] LABS: ALBUMIN 3.7 g/dl (3.4-5.0); BLOOD UREA NITROGEN 13.9 mg/dL (7-18)
[2021-10-29 21:52] LABS: CREATININE 0.7 mg/dL (0.55-1.3)
[2021-10-29 21:53] LABS: TOT PROT 7.4 g/dl (6.4-8.2)
[2021-10-29 21:54] LABS: BILIRUBIN,TOTAL 0.2 mg/dL (0.2-1)
== END 2021-10-29 22:48 | disposition home or self-care (01) ==
LOC: JER 19:07
PROC: 3E033GC Introduction of Other Therapeutic Substance into Peripheral Vein, Percutaneous Approach (ICD-10-PCS; principal; 2021-10-29)
PROC: 3E033GC Introduction of Other Therapeutic Substance into Peripheral Vein, Percutaneous Approach (ICD-10-PCS; 2021-10-29)
DX: R10.11 Right upper quadrant pain (principal)
CPT/HCPCS: 36415; 71046-TC-FY; 76705-TC; 80053; 81003; 83690; 84703; 85025; 87086; 96374; 96375; 99285-25

== ENCOUNTER 2021-11-05 22:44 | Emergency (ER) | payer MEDICARE ==
[2021-11-05 22:50] VITALS: PULSE 78; TEMP 98; BMI 31.6
[2021-11-05] MEDS ORDERED: ACETAMINOPHEN 1000 MG/100 ML BAG IVPB ONE (23:50)
[2021-11-05] MEDS ORDERED: LIDOCAINE HCL 2% JELLY 10 ML CARTRIDGE PR ONE (23:51)
[2021-11-06] MEDS ORDERED: LIDOCAINE HCL 2% JELLY 10 ML CARTRIDGE ONE (00:12)
[2021-11-06] MEDS ORDERED: ACETAMINOPHEN INJECTION 100 ML IVPB ONE (00:12)
[2021-11-06 01:00] LABS: BASO % 0.4 % (0-2.0); EOS % 0.5 % (0-4.5); HEMATOCRIT 36.2 % (32.4-45.2); HEMOGLOBIN 12.4 GM/dL (10.7-15.3); LYMPH % 19.7 % (8-40); MCH 30.2 pg (25.7-33.7); MCHC 34.3 g/dl (32.0-36.0); MEAN CELL VOLUME 88.3 fl (80-96); MONO % 6.7 % (3.8-10.2); NEUT % 72.7 % (42.8-82.8); PLATELET COUNT 232 10^3/uL (134-434); RDW 13.2 % (11.6-15.6); WHITE BLOOD COUNT 11.5 K/mm3 (4.0-10.0)
[2021-11-06 01:43] LABS: ALBUMIN 3.7 g/dl (3.4-5.0); BILIRUBIN,TOTAL 0.2 mg/dL (0.2-1); BLOOD UREA NITROGEN 21.4 mg/dL (7-18); CALCIUM 9.2 mg/dL (8.5-10.1); CREATININE 0.6 mg/dL (0.55-1.3); TOT PROT 7.2 g/dl (6.4-8.2)
[2021-11-06 02:21] VITALS: BP 116/60
== END 2021-11-06 02:50 | disposition home or self-care (01) ==
LOC: JER 22:44
PROC: 3E033GC Introduction of Other Therapeutic Substance into Peripheral Vein, Percutaneous Approach (ICD-10-PCS; principal; 2021-11-05)
DX: K62.5 Hemorrhage of anus and rectum (principal)
CPT/HCPCS: 36415; 80053; 82272; 85025; 96374; 99284-25

== ENCOUNTER 2022-10-10 09:19 | Observation (INO) | payer MEDICARE, OTHER ==
[2022-10-10] MEDS ORDERED: SODIUM CHLORIDE 1,000 ML IV STA ×2 (10:14→13:23)
[2022-10-10] MEDS ORDERED: ACETAMINOPHEN 1000 MG/100 ML BAG IVPB ONE (10:14)
[2022-10-10] MEDS ORDERED: ONDANSETRON 4 MG/2 ML VIAL IVPUSH ONE ×2 (10:14→13:22)
[2022-10-10] MEDS ORDERED: ACETAMINOPHEN INJECTION 100 ML IVPB ONE (10:23)
[2022-10-10] MEDS ORDERED: ONDANSETRON 4 MG/2 ML VIAL ONE ×2 (10:23→13:46)
[2022-10-10 11:16] LABS: HEMATOCRIT 39.2 % (32.4-45.2); HEMOGLOBIN 13.9 G/dL (10.7-15.3); MCHC 35.5 g/dl (32.0-36.0); MEAN CELL VOLUME 87.4 fl (80-96); MEAN PLT VOLUME 8.8 fl (7.5-11.1); PLATELET COUNT 223.1 10^3/uL (134-434); RBC 4.49 10^6/uL (3.60-5.2); RDW 14.3 % (11.6-15.6); WHITE BLOOD COUNT 9.6 10^3/uL (4.0-10.8)
[2022-10-10 11:21] LABS: ALBUMIN 4.4 g/dl (3.4-5.0); BILIRUBIN,TOTAL 1.3 mg/dl (0.2-1); CALCIUM 9.9 mg/dl (8.5-10); CREATININE 0.7 mg/dl (0.55-1.3); TOT PROT 7.8 g/dl (6.4-8.2)
[2022-10-10 12:22] LABS: PLATELET ESTIMATE ADEQUATE
[2022-10-10] MEDS ORDERED: METOCLOPRAMIDE HCL INJECTION 10 MG/2 ML VIAL IVPB ONE (17:25)
[2022-10-10] MEDS ORDERED: METOCLOPRAMIDE HCL INJECTION 10 MG/2 ML VIAL ONE (17:26)
[2022-10-10 20:27] VITALS: BMI 34.9
[2022-10-10] MEDS ORDERED: DEXTROSE 5%-NORMAL SALINE 1,000 ML IV SCH (21:30)
[2022-10-10] MEDS: ONDANSETRON 4 MG/2 ML VIAL IVPUSH PRN (21:41)
[2022-10-11 01:15] VITALS: RESP 18
[2022-10-11] MEDS ORDERED: MELATONIN 5 MG TABLETS PO SCH ×2 (01:45→22:00)
[2022-10-11] MEDS ORDERED: SODIUM PHOSPHATE/NA BIPHOS 133 ML ENEMA RC PRN (01:49)
[2022-10-11] MEDS ORDERED: POLYETHYLENE GLYCOL (HEALTHYLAX) 3350 17 GM PACKET PO PRN (01:49)
[2022-10-11] MEDS: ONDANSETRON 4 MG/2 ML VIAL IVPUSH PRN ×2 (06:43→15:44)
[2022-10-11 08:01] LABS: CALCIUM 9.3 mg/dl (8.5-10); CREATININE 0.7 mg/dl (0.55-1.3); MAGNESIUM 1.7 mg/dL (1.8-2.4)
[2022-10-11 09:22] LABS: BASO % 0.6 % (0-2.0); EOS % 0.4 % (0-4.5); HEMATOCRIT 39.4 % (32.4-45.2); HEMOGLOBIN 13.1 GM/dL (10.7-15.3); LYMPH % 24.7 % (8-40); MCH 29.6 pg (25.7-33.7); MCHC 33.3 g/dl (32.0-36.0); MEAN PLT VOLUME 9.2 fl (7.5-11.1); MONO % 6.6 % (3.8-10.2); NEUT % 67.7 % (42.8-82.8); PLATELET COUNT 210 10^3/uL (134-434); RBC 4.43 M/mm3 (3.60-5.2); RDW 13.6 % (11.6-15.6); WHITE BLOOD COUNT 7.4 K/mm3 (4.0-10.0)
[2022-10-11] MEDS ORDERED: PANTOPRAZOLE 20 MG TABLET PO SCH (10:00)
[2022-10-11] MEDS ORDERED: cloNIDine HCL 0.1 MG TABLET PO SCH (10:00)
[2022-10-11] MEDS ORDERED: DOCUSATE SODIUM 100 MG CAPSULE (FP) PO SCH (10:00)
[2022-10-11] MEDS ORDERED: LURASIDONE HCL 20 MG TABLET PO SCH (10:00)
[2022-10-11] MEDS ORDERED: SENNOSIDES/DOCUSATE COMBO (SENNA PLUS) TABLET (UD) PO SCH (10:00)
[2022-10-11] MEDS: ACETAMINOPHEN 500 MG TABLET (FP) PO PRN ×2 (10:52→15:52)
[2022-10-11] MEDS: METOCLOPRAMIDE HCL 10 MG TABLET (FP) PO SCH ×2 (12:41→16:40)
[2022-10-11 14:53] VITALS: BP 121/56; PULSE 111; TEMP 98.6
[2022-10-12] MEDS ORDERED: ENOXAPARIN NA (PORCINE) 40 MG/0.4 ML DISP.SYRIN SQ SCH (10:00)
== END 2022-10-11 17:05 | disposition home or self-care (01) ==
LOC: FER 09:19 → INTOOBSV 18:19 → FM/S 18:19
PROVIDERS: ADMIT Internal Medicine; ATTEND Internal Medicine
PROC: 3E033NZ Introduction of Analgesics, Hypnotics, Sedatives into Peripheral Vein, Percutaneous Approach (ICD-10-PCS; principal; 2022-10-10)
PROC: 3E033GC Introduction of Other Therapeutic Substance into Peripheral Vein, Percutaneous Approach (ICD-10-PCS; 2022-10-10)
PROC: 3E033GC Introduction of Other Therapeutic Substance into Peripheral Vein, Percutaneous Approach (ICD-10-PCS; 2022-10-10)
PROC: 3E0337Z Introduction of Electrolytic and Water Balance Substance into Peripheral Vein, Percutaneous Approach (ICD-10-PCS; 2022-10-10)
DX: R11.10 Vomiting, unspecified (principal); K59.09 Other constipation; E66.01 Morbid (severe) obesity due to excess calories; Z68.33 Body mass index [BMI] 33.0-33.9, adult; K58.9 Irritable bowel syndrome, unspecified; R56.9 Unspecified convulsions; F31.9 Bipolar disorder, unspecified; Z88.8 Allergy status to other drugs, medicaments and biological substances
CPT/HCPCS: 0241U-QW; 36415; 74177-TC; 76705-TC; 80048; 80053; 81003; 81025; 83690; 83735; 84100; 85025; 85027; 87086; 96361; 96365; 96374; 96375; 99285-25; G0378; Q9967

== ENCOUNTER 2022-10-24 13:00 | Emergency (ER) | payer MEDICARE, OTHER ==
[2022-10-24 13:34] VITALS: BP 108/66; PULSE 62; RESP 18; TEMP 97.8; BMI 35.4
[2022-10-24] MEDS ORDERED: MAG HYDROX/AL HYDROX/SIMETH -MYLANTA- ORAL SUSPENSION PO ONE (13:52)
[2022-10-24] MEDS ORDERED: FAMOTIDINE 20 MG TABLET PO ONE (13:52)
[2022-10-24] MEDS ORDERED: ONDANSETRON 4 MG TABLET PO ONE (13:52)
[2022-10-24] MEDS ORDERED: FAMOTIDINE 20 MG TABLET ONE (14:01)
[2022-10-24] MEDS ORDERED: ONDANSETRON *ODT* 4 MG TABLET ONE (14:02)
[2022-10-24] MEDS ORDERED: MAG HYDROX/AL HYDROX/SIMETH 30 ML UNIT-DOSE CUP ONE (14:02)
[2022-10-24 14:08] LABS: HEMOGLOBIN 13.1 G/dL (10.7-15.3); MCH 31.8 pg (25.7-33.7); MCHC 35.5 g/dl (32.0-36.0); MEAN CELL VOLUME 89.5 fl (80-96); MEAN PLT VOLUME 8.6 fl (7.5-11.1); PLATELET COUNT 199.7 10^3/uL (134-434); RBC 4.13 10^6/uL (3.60-5.2); RDW 13.5 % (11.6-15.6); WHITE BLOOD COUNT 10.1 10^3/uL (4.0-10.8)
[2022-10-24 14:19] LABS: ALBUMIN 4.3 g/dl (3.4-5.0); BILIRUBIN,TOTAL 1.3 mg/dl (0.2-1); CALCIUM 9.5 mg/dl (8.5-10); CREATININE 0.7 mg/dl (0.55-1.3); TOT PROT 7.4 g/dl (6.4-8.2)
== END 2022-10-24 15:13 | disposition home or self-care (01) ==
LOC: FER 13:00
DX: R10.11 Right upper quadrant pain (principal)
CPT/HCPCS: 36415; 76705-TC; 80053; 81003; 85027; 87077; 87086; 99284-25